=== PATIENT | female | born 1985 | race Caucasian/White ===

== ENCOUNTER 2016-10-06 19:06 | Emergency (ER) | payer OTHER ==
[~2016-10-06] VITALS: Ht 165.1 cm; Wt 77.5 kg
[~2016-10-06 19:06] MED LIST: ACET500C5 PO; CEPH-443 PO; NAPR-688 PO
[2016-10-06 19:16] VITALS: Ht 165.1 cm; Wt 77.5 kg
[2016-10-06] MEDS ORDERED: ACETAMINOPHEN 325 MG TAB PO ONE (21:30)
[2016-10-06] MEDS ORDERED: IBUPROFEN 600 MG TAB PO ONE (21:30)
--- NOTE | 2016-10-06 22:50 | RADRPT ---
PROCEDURE: XR Chest. CLINICAL INDICATION: Fever, cough. TECHNIQUE: Single frontal chest x-ray. COMPARISON: Chest radiograph 03/20/2014. FINDINGS: The cardiomediastinal silhouette is unremarkable. No pneumothorax, pleural effusion or consolidation is seen. No acute osseous abnormality is noted. IMPRESSION: 1. No acute cardiopulmonary abnormality. RPTAT: HFN .Karin Irene MD, Date Time Electronically viewed and signed by .Karin Irene MD, on 10/06/2016 22:50 .N/
[2016-10-06] MEDS ORDERED: AZIT250T94 PO (23:42)
[2016-10-06] MEDS ORDERED: ACET500C5 PO (23:42)
[2016-10-06] MEDS ORDERED: ALBU8.5H3 INH (23:42)
[2016-10-06] MEDS ORDERED: BENZ100C70 PO (23:42)
--- NOTE | 2016-10-07 00:07 | ERD ---
ER Documentation Chief Complaint Date/Time DATE: 10/07/16 TIME: 00:04 Chief Complaint cough worsening with phlegm, squeezing pain with cough HPI 31-year-old female patient with no significant past medical history presents to the ED complaining of a productive cough that started intermittently for 1 month. Reports that she also felt like she had chills and a fever. States that she has been taking naproxen. Denies any chest pain, wheezing, shortness of breath, abdominal pain, nausea, vomiting, diarrhea. Denies any sick contacts. Denies any neck stiffness. Denies any recent traveling. ROS All systems reviewed and are negative except as per history of present illness. Medications Home Meds Active Scripts Benzonatate* (Tessalon Perle*) 100 Mg Capsule, 100 MG PO Q8H Y for COUGH, #20 CAP Prov:JOHNIE STROUD-C 10/06/16 Albuterol Sulfate* (Proair HFA*) 8.5 Gm Hfa.aer.ad, 2 PUFF INH Q4, #1 INHALER Prov:JOHNIE STROUD PA-C 10/06/16 Acetaminophen* (Tylophen*) 500 Mg Capsule, 1 CAP PO Q6H Y for PAIN AND OR ELEVATED TEMP, #20 CAP Prov:JOHNIE STROUD PA-C 10/06/16 Azithromycin* (Zithromax*) 250 Mg Tablet, 250 MG PO .ZPACK DIRECTED, #6 TAB TAKE 500 MG (2 TABS) THE FIRST DAY THEN 250 MG (1 TAB) DAYS 2-5 Prov:JOHNIE STROUD PA-C 10/06/16 Naproxen* (Naproxen*) 500 Mg Tablet, 500 MG PO BID, #12 TAB Prov:TORSTEN MALDONADO DO 10/25/15 Acetaminophen* (Tylophen*) 500 Mg Capsule, 1 CAP PO Q6H Y for PAIN AND OR ELEVATED TEMP, #20 CAP Prov:OLE MURCIA NP 10/22/15 Cephalexin* (Keflex*) 500 Mg Capsule, 500 MG PO Q6, #28 CAP Prov:OLE MURCIA NP 10/22/15 Allergies Allergies: Coded Allergies: No Known Allergy (Unverified , 05/09/14) PMhx/Soc History of Surgery: Yes (BTL and abdominal clean up due to infection, appendectomy) Anesthesia Reaction: No Hx Neurological Disorder: No Hx Respiratory Disorders: No Hx Cardiac Disorders: No Hx Psychiatric Problems: No Hx Miscellaneous Medical Probl: No Hx Alcohol Use: Yes (Occasional- 1 vodka today) Hx Substance Use: Yes (THC daily) Hx Tobacco Use: Yes (4 cig/ day) Smoking Status: Current every day smoker Physical Exam Vitals Vital Signs Date Time Temp Pulse Resp B/P Pulse Ox O2 Delivery O2 Flow Rate FiO2 10/07/16 00:52 98.9 77 19 107/57 100 Room Air 10/06/16 19:16 102.9 118 20 124/69 99 Physical Exam Const: Wan-iwd-hzejwtyhk, well-nourished. In no acute distress. Head: Atraumatic, normocephalic Eyes: Normal Conjunctiva without injection. No purulent discharge. PERRL. EOMI ENT: Normal external ear. Ear canal without erythema. Tympanic membrane pearly alaniz without effusion or bulging. Nasal canal clear with normal turbinates. Moist oropharynx without tonsillar exudates. Non-erythematous pharynx. Uvula midline. No drooling. No trismus. Neck: Full range of motion. No meningismus. No cervical lymphadenopathy. Resp: Clear to auscultation bilaterally. No wheezing, rhonchi, rales, or crackles. No accessory muscle use. No retractions. Cardio: Regular rate and rhythm. No murmurs, rubs or gallops. Abd: Soft, non tender, non distended. Normal bowel sounds. No palpable masses. No rebound tenderness. No guarding. Skin: No petechiae or rashes Back: No midline tenderness. No CVA tenderness. Ext: No cyanosis, or edema. Neur: Awake and alert. Psych: Normal Mood and Affect Results 24 hrs Current Medications Medications (Trade) Dose Ordered Sig/Cayla Route PRN Reason Start Time Stop Time Status Last Admin Dose Admin Ibuprofen (Motrin) 600 mg ONCE ONCE PO 10/06/16 21:30 10/06/16 21:31 DC 10/06/16 21:34 Acetaminophen (Tylenol Tab) 650 mg ONCE ONCE PO 10/06/16 21:30 10/06/16 21:31 DC 10/06/16 21:34 Procedures/MDM This is a 31-year-old female patient with no significant past medical history presents the ED complaining of a productive cough that started intermittently 1 month ago. Patient has a fever of 102.9. Ibuprofen and Tylenol was ordered to further downtrend patient's temperature. Patient is tachycardic at 118. A chest x-ray was ordered to further evaluate patient. PROCEDURE: XR Chest. CLINICAL INDICATION: Fever, cough. TECHNIQUE: Single frontal chest x-ray. COMPARISON: Chest radiograph 03/20/2014. FINDINGS: The cardiomediastinal silhouette is unremarkable. No pneumothorax, pleural effusion or consolidation is seen. No acute osseous abnormality is noted. IMPRESSION: 1. No acute cardiopulmonary abnormality. This patient presents to the ED with symptoms consistent with bronchitis. Patient is afebrile and has normal vital signs. Patient's physical exam include lungs which were clear to auscultation and a normal pulse oximetry. There is a low suspicion for pneumonia, pneumothorax, mononucleosis, pulmonary embolism, epiglottitis, otitis media, otitis externa, viral/strep pharyngitis, sinusitis, peritonsillar abscess, mastoiditis, retropharyngeal abscess, meningitis, sepsis, acute abdomen or other emergent conditions. Fluids, rest, and symptomatic treatment are recommended for the management of patient's symptoms. Discharge medications: Tessalon Perles, Pro-air, Tylenol, Zithromax Patient was instructed to return to the ED for any new or worsening symptoms. They should otherwise follow up with the primary care provider within 1-2 days. The patient's questions were answered at the time of discharge. Patient understood and agreed with discharge management. Departure Diagnosis: Primary Impression: Productive cough Additional Impression: Fever Fever type: unspecified Qualified Code: R50.9 - Fever, unspecified fever cause Condition: Stable Patient Instructions: Bronchitis, Antiobiotic Treatment (Adult) Referrals: COMMUNITY CLINICS YOU HAVE RECEIVED A MEDICAL SCREENING EXAM AND THE RESULTS INDICATE THAT YOU DO NOT HAVE A CONDITION THAT REQUIRES URGENT TREATMENT IN THE EMERGENCY DEPARTMENT. FURTHER EVALUATION AND TREATMENT OF YOUR CONDITION CAN WAIT UNTIL YOU ARE SEEN IN YOUR DOCTORS OFFICE WITHIN THE NEXT 1-2 DAYS. IT IS YOUR RESPONSIBILITY TO MAKE AN APPOINTMENT FOR FOLOW-UP CARE. IF YOU HAVE A PRIMARY DOCTOR --you should call your primary doctor and schedule an appointment IF YOU DO NOT HAVE A PRIMARY DOCTOR YOU CAN CALL OUR PHYSICIAN REFERRAL HOTLINE AT IF YOU CAN NOT AFFORD TO SEE A PHYSICIAN YOU CAN CHOSE FROM THE FOLLOWING [facility] [address] [facility] [address] [facility] [address] [facility] [address] [facility] [address] [facility]. [facility] [address] [facility]. [facility] YOU HAVE RECEIVED A MEDICAL SCREENING EXAM AND THE RESULTS INDICATE THAT YOU DO NOT HAVE A CONDITION THAT REQUIRES URGENT TREATMENT IN THE EMERGENCY DEPARTMENT. FURTHER EVALUATION AND TREATMENT OF YOUR CONDITION CAN WAIT UNTIL YOU ARE SEEN IN YOUR DOCTORS OFFICE WITHIN THE NEXT 1-2 DAYS. IT IS YOUR RESPONSIBILITY TO MAKE AN APPOINTMENT FOR FOLOW-UP CARE. IF YOU HAVE A PRIMARY DOCTOR --you should call your primary doctor and schedule and appointment IF YOU DO NOT HAVE A PRIMARY DOCTOR YOU CAN CALL OUR PHYSICIAN REFERRAL HOTLINE AT . IF YOU CAN NOT AFFORD TO SEE A PHYSICIAN YOU CAN CHOSE FROM THE FOLLOWING [facility]: [facility] [id number] [place] [address] [facility] [address] [place] [address] [facility] [address] [place] [address] [facility] URGENT CARE/SPECIALTIES Additional Instructions: Call your primary care doctor TOMORROW for an appointment during the next 2-3 days.See the doctor sooner or return here if your condition worsens before your appointment time. JOHNIE STROUD PA-C Oct 07, 2016 00:07
[2016-10-07 00:52] VITALS: BP 107/57; PULSE 77; RESP 19; TEMP 98.9
== END 2016-10-07 01:01 | disposition home or self-care (01) ==
LOC: FTE 19:06
DX: R05 Cough (principal); R50.9 Fever, unspecified; F17.210 Nicotine dependence, cigarettes, uncomplicated
CPT/HCPCS: 71010; Z7610